=== PATIENT | female | born 1970 | race Hispanic/Latino ===

== ENCOUNTER 2020-08-02 15:21 | Emergency (ER) | payer BC, OTHER ==
[2020-08-02] MEDS ORDERED: ASPIRIN 325 MG TABLET ONE (15:42)
[2020-08-02 16:07] LABS: EOSINOPHILS % (AUTO) 2.3 % (0.0-8.0); HEMATOCRIT 42.4 % (36-48); LYMPHOCYTES % (AUTO) 21.9 % (21.0-51.0); MEAN CORPUSCULAR HEMOGLOBIN 27.5 pg (27.0-33.0); MEAN CORPUSCULAR HGB CONC 31.6 g/dL (32.0-36.0); MEAN CORPUSCULAR VOLUME 86.9 fL (79-99); MONOCYTES % (AUTO) 6.2 % (3.0-13.0); NEUTROPHILS % (AUTO) 68.4 % (40.0-77.0); PLATELET COUNT (AUTO) 258 K/uL (130-400); RED BLOOD CELL COUNT(AUTO) 4.88 MIL/uL (4.00-5.50); RED CELL DISTRIBUTION WIDTH 13.2 % (11.0-15.5); WHITE BLOOD COUNT (AUTO) 8.4 K/uL (4.8-10.8)
[2020-08-02 16:16] LABS: APPEARANCE,URINE Clear (CLEAR); BILIRUBIN,URINE Negative (NEGATIVE); COLOR,URINE Yellow (YELLOW); GLUCOSE, URINE (UA) >=1000 mg/dL (NEGATIVE); KETONES,URINE Negative (NEGATIVE); LEUKOCYTE ESTERASE ,URINE Moderate (NEGATIVE); NITRATE,URINE Negative (NEGATIVE); OCCULT BLOOD,URINE Negative (NEGATIVE); PROTEIN,URINE Negative (NEGATIVE)
[2020-08-02 16:19] LABS: INR 1.02 (0.85-1.15); PROTHROMBIN TIME 11.1 SEC (9.6-11.6)
[2020-08-02 16:21] LABS: ALBUMIN 3.5 g/dL (3.5-5.0); BILIRUBIN,TOTAL 0.3 mg/dL (0.2-1.0); CREATININE 0.8 mg/dL (0.5-1.5)
[2020-08-02] MEDS ORDERED: SODIUM CHLORIDE 0.9% 1000ML 1,000 ML IV ONE (16:24)
[2020-08-02] MEDS ORDERED: DiphenhydrAMINE HCL 50 MG/ML VIAL ONE (16:25)
[2020-08-02] MEDS ORDERED: ACETAMINOPHEN EXTRA STRENGTH 500 MG TABLET ONE (16:25)
[2020-08-02] MEDS ORDERED: METOCLOPRAMIDE 10 MG/2 ML VIAL ONE (16:25)
[2020-08-02 16:43] LABS: BACTERIA,URINE Few /HPF (None Seen); MUCUS,URINE Few LPF (None Seen); SQUAMOUS EPITHELIAL CELL,UR Moderate /HPF (0-2)
[2020-08-02] MEDS ORDERED: CEFTRIAXONE SODIUM 1 GM ONE (18:00)
== END 2020-08-02 18:19 | disposition home or self-care (01) ==
LOC: EDH 15:21
DX: N39.0 Urinary tract infection, site not specified (principal); E11.65 Type 2 diabetes mellitus with hyperglycemia; R07.89 Other chest pain; R51.9 Headache, unspecified; I10 Essential (primary) hypertension; E78.5 Hyperlipidemia, unspecified; Z90.49 Acquired absence of other specified parts of digestive tract
CPT/HCPCS: 36415; 70450; 71045; 80053; 81001; 82550; 83690; 84484; 85025; 85610; 85730; 87088; 93005; 96361; 96365; 96375; 99285; J0696; J1200; J2765; J7030